=== PATIENT | female | born 1950 | race Caucasian/White ===

== ENCOUNTER 2017-01-22 13:46 | Emergency (ER) | payer MEDICARE ==
[~2017-01-22 13:46] MED LIST: ASPIR 8181 MG PO; BRILINTA90 MG PO; GLUCOPHAGE-DPS500 MG PO; LIPITOR DPS40 MG PO; NITROSTAT0.4 MG SL; NORVASC DPS10 MG PO; TOPROL XL DPS100 MG PO; TYLENOL DPS325 MG PO; ZESTRIL DPS2.5 MG PO; ZYRTEC DPS10 MG PO
--- NOTE | 2017-03-24 15:42 | ER ---
ADMIT: 01/22/2017 RM/LOC: ER [facility] MR#: [id number] [address] [id number] MARION MARTINEZ [address] [place] [address] Emergency Room Report SEX: F AGE: 66 : 1950 DATE: 01/22/2017 ADDENDUM: The patient comes to the ER because she had high blood pressure today. She went to the clinic. They saw her blood pressure and told her to come to the ER. At the clinic, it was 230/128. She states she does not have any pain and she actually feels pretty good. On physical exam, she is alert and oriented. Lungs are clear. Her abdomen is soft. She is alert and oriented. Speaks appropriately. She was given clonidine in the emergency room and captopril, which brought her blood pressure down to 222/90. Initially when she got to the emergency room, it was 230/128. We did discuss her blood pressure medicine and she has an appointment to see Dr. Banerjee about seeing if they need to be readjusted. She should continue with lisinopril 10 mg one tablet p.o. daily and see Dr. Banerjee tomorrow. BREN Mooney / Jerson Castro MD / alivia JOB #: [id number] CC: Jerson Castro MD, Attending Physician Tresa Banerjee MD, Family Physician
== END 2017-01-22 17:30 | disposition home or self-care (01) ==
LOC: ER 13:46
DX: I10 Essential (primary) hypertension (principal); E78.00 Pure hypercholesterolemia, unspecified; E11.9 Type 2 diabetes mellitus without complications; Z88.8 Allergy status to other drugs, medicaments and biological substances; Z79.84 Long term (current) use of oral hypoglycemic drugs

== ENCOUNTER → 2017-03-24 | Outpatient (CLI) | payer MEDICARE ==
--- NOTE | 2017-03-29 15:48 | SS ---
ADMIT: 03/24/2017 RM/LOC: [facility] MR#: [id number] [address] [id number] MARION MARTINEZ [address] [place] [address] Sleep Study SEX: F AGE: 66 : 1950 STUDY DATE: 03/24/2017 CLINICAL HISTORY: A 66-year-old female, body mass index 37.5, 64 inches tall, 225 pounds, with symptoms of snoring, daytime sleepiness, fatigue, undergoing evaluation for obstructive sleep apnea. TECHNICAL DESCRIPTION: Diagnostic polysomnogram performed on night of 03/24/2017, attended by a trained processing technologist. DIAGNOSTIC POLYSOMNOGRAM FINDINGS: SLEEP: Total time in bed 446.5 minutes, total sleep time 395.5 minutes, sleep efficiency 88.6%. 84.3% hours spent in stage II sleep, 4% hours spent in stage REM. BREATHING: Asnkqcqv-[id number] obstructive sleep apnea with apnea-hypopnea index of 21.8. During the study, there were 22 central apneas, 6 obstructive apneas, and 116 obstructive hypopneas noted. OXYGEN SATURATION: Mean sleeping on 91%. 21.4% hours spent in saturating 80% to 89%. CARDIAC: Average heart rate is 66 beats per minute. MOVEMENTS/POSITION: During the study, the patient slept in the lateral position predominantly, brief time in the supine position with no significant leg movements. IMPRESSION AND PLAN: Xhnrrngz-qf-ryeicy obstructive sleep apnea with apnea- hypopnea index of 21.8. Recommend CPAP titration. Recommend losing weight. Recommend avoiding sedative or alcohol. Recommend refrain from driving if excessively sleepy. Recommend avoiding sleeping in supine position. Clinical correlation needed. CPAP titration is recommended. Carlo Canales MD/ alivia JOB #: [id number] CC: Maurilio Nicholas MD, Attending Physician Tresa Baenrjee MD, Family Physician Maurilio Nicholas MD
== END | disposition home or self-care (01) ==
LOC: RESC 20:05
DX: G47.30 Sleep apnea, unspecified (principal); R53.83 Other fatigue; G47.33 Obstructive sleep apnea (adult) (pediatric)